=== PATIENT | female | born 1970 | race Hispanic/Latino ===

== ENCOUNTER 2022-01-28 17:12 | Emergency (ER) | payer OTHER | END 2022-01-28 21:00 | LOC: ERS 17:12 | DX: I10 Essential (primary) hypertension (principal); M19.90 Unspecified osteoarthritis, unspecified site; E78.5 Hyperlipidemia, unspecified; E78.00 Pure hypercholesterolemia, unspecified | CPT/HCPCS: 36415; 71045; 80053; 84484; 85025; 93005 ==